=== PATIENT | male | born 1995 | race Caucasian/White ===

== ENCOUNTER 2019-04-16 11:37 | Emergency (ER) | payer BC, OTHER ==
[~2019-04-16] VITALS: Ht 172.7 cm; Wt 81.6 kg
[~2019-04-16 11:37] MED LIST: CIPR250T30 PO; TRAM50TA PO
[2019-04-16 12:12] VITALS: BP 142/93
[2019-04-16] MEDS ORDERED: DEXAMETHASONE SOD PHOS 4 MG/ML VIAL IM ONE (12:45)
--- NOTE | 2019-04-16 13:40 | RAD ---
NECK SOFT TISSUE History: Dysphasia. Technique: 2 views neck soft tissues Comparison: None. Findings: No prevertebral soft tissue thickening. Normal appearance of the epiglottis. Straightening of normal cervical lordosis. Disc spaces are well-maintained. Normal vertebral body height. No fracture. Impression: 1. Unremarkable radiographs of the neck soft tissues. Electronically signed by: Jarvis Pyle DO (04/16/2019 1:37 PM) [id number]
--- NOTE | 2019-04-16 13:45 | PHYS DOC ---
Past Medical History Past Medical History: No Pertinent History Past Surgical History: Tonsillectomy Alcohol Use: Occasionally Drug Use: Marijuana Adult General Chief Complaint Chief Complaint: SORE THROAT HPI HPI Patient is a 23 year old [f__sex] who presents with [] Review of Systems Review of Systems Constitutional: Denies fever or chills [] Eyes: Denies change in visual acuity, redness, or eye pain [] HENT: Denies nasal congestion or sore throat [] Respiratory: Denies cough or shortness of breath [] Cardiovascular: No additional information not addressed in HPI [] GI: Denies abdominal pain, nausea, vomiting, bloody stools or diarrhea [] : Denies dysuria or hematuria [] Musculoskeletal: Denies back pain or joint pain [] Integument: Denies rash or skin lesions [] Neurologic: Denies headache, focal weakness or sensory changes [] Endocrine: Denies polyuria or polydipsia [] All other systems were reviewed and found to be within normal limits, except as documented in this note. Current Medications Current Medications Current Medications Medications (Trade) Dose Ordered Sig/Jesse Start Time Stop Time Status Last Admin Dose Admin Dexamethasone Sodium Phosphate (Decadron) 10 mg 1X ONCE 04/16/19 12:45 04/16/19 12:46 DC 04/16/19 12:59 10 MG Allergies Allergies Allergies Coded Allergies Type Severity Reaction Last Updated Verified No Known Drug Allergies 03/25/14 No Physical Exam Physical Exam Constitutional: Well developed, well nourished, no acute distress, non-toxic appearance. [] HENT: Normocephalic, atraumatic, bilateral external ears normal, oropharynx moist, no oral exudates, nose normal. [] Eyes: PERRLA, EOMI, conjunctiva normal, no discharge. [] Neck: Normal range of motion, no tenderness, supple, no stridor. [] Cardiovascular:Heart rate regular rhythm, no murmur [] Lungs & Thorax: Bilateral breath sounds clear to auscultation [] Abdomen: Bowel sounds normal, soft, no tenderness, no masses, no pulsatile masses. [] Skin: Warm, dry, no erythema, no rash. [] Back: No tenderness, no CVA tenderness. [] Extremities: No tenderness, no cyanosis, no clubbing, ROM intact, no edema. [] Neurologic: Alert and oriented X 3, normal motor function, normal sensory function, no focal deficits noted. [] Psychologic: Affect normal, judgement normal, mood normal. [] Current Patient Data Vital Signs Vital Signs Date Time Temp Pulse Resp B/P (MAP) Pulse Ox O2 Delivery O2 Flow Rate FiO2 04/16/19 12:12 98.5 85 20 142/93 (109) 99 Room Air 98.5 EKG EKG [] Radiology/Procedures Radiology/Procedures PROCEDURE: NECK SOFT TISSUE NECK SOFT TISSUE History: Dysphasia. Technique: 2 views neck soft tissues Comparison: None. Findings: No prevertebral soft tissue thickening. Normal appearance of the epiglottis. Straightening of normal cervical lordosis. Disc spaces are well-maintained. Normal vertebral body height. No fracture. Impression: 1. Unremarkable radiographs of the neck soft tissues.[] Course & Med Decision Making Course & Med Decision Making Pertinent Labs and Imaging studies reviewed. (See chart for details) [] Dragon Disclaimer Dragon Disclaimer This electronic medical record was generated, in whole or in part, using a voice recognition dictation system. Departure Departure Impression: Primary Impression: Pharyngitis Additional Impression: Allergic rhinitis Disposition: HOME, SELF-CARE Condition: STABLE Referrals: Viral LANGSTON MD (PCP) Patient Instructions: Allergic Rhinitis, Viral Pharyngitis Additional Instructions: Fill the prescription(s) and use as directed. Recommend that you take 10 mg of generic Zyrtec (cetirizine) or Claritin at bedtime and use over the counter Flonase (fluticasone) nasal spray 2 sprays each nostril once daily in the morning. You may take Tylenol or ibuprofen as needed for pain/fever. Increase clear fluids. Avoid triggers such as smoke, fragrance, dust, and pollen. You may take OTC cough suppressants as needed. Follow-up with your primary care doctor if symptoms persist, return to the ER if symptoms worsen. Problem Qualifiers Primary Impression: Pharyngitis Pharyngitis/tonsillitis etiology: unspecified etiology Qualified Codes: J02.9 - Acute pharyngitis, unspecified Additional Impression: Allergic rhinitis Allergic rhinitis trigger: unspecified Allergic rhinitis seasonality: non- seasonal Qualified Codes: J30.89 - Other allergic rhinitis LISBETH GIRARD [employer] Apr 16, 2019 13:45
== END 2019-04-16 14:35 | disposition home or self-care (01) ==
LOC: ER 11:37
DX: J02.9 Acute pharyngitis, unspecified (principal); J30.89 Other allergic rhinitis; Z90.89 Acquired absence of other organs
CPT/HCPCS: 70360; 87070; 87880; 96372; 99285; J1100